=== PATIENT | female | born 1970 | race Caucasian/White ===

== ENCOUNTER 2016-11-23 12:59 | Emergency (ER) | payer MEDICARE, OTHER | END 2016-11-23 13:58 | disposition home or self-care (01) | LOC: ER 12:59 | DX: M54.5 Low back pain (principal); G89.29 Other chronic pain; I10 Essential (primary) hypertension; Z90.710 Acquired absence of both cervix and uterus; Z79.891 Long term (current) use of opiate analgesic; Z79.899 Other long term (current) drug therapy; Z88.6 Allergy status to analgesic agent; Z88.8 Allergy status to other drugs, medicaments and biological substances | CPT/HCPCS: 96372; 99282-25; 99283 ==